=== PATIENT | female | born 1995 | race Caucasian/White ===

== ENCOUNTER 2017-03-06 20:39 | Emergency (ER) | payer OTHER | END 2017-03-06 22:36 | disposition home or self-care (01) | LOC: ER 20:39 | DX: N92.6 Irregular menstruation, unspecified (principal); R11.0 Nausea; F43.10 Post-traumatic stress disorder, unspecified; Z79.899 Other long term (current) drug therapy | CPT/HCPCS: 96372; J1885 ==

== ENCOUNTER 2017-04-18 07:56 | Emergency (ER) | payer OTHER | END 2017-04-18 13:00 | disposition home or self-care (01) | LOC: ER 07:56 | DX: H66.92 Otitis media, unspecified, left ear (principal); N39.0 Urinary tract infection, site not specified; F43.10 Post-traumatic stress disorder, unspecified; Z98.890 Other specified postprocedural states; Z79.899 Other long term (current) drug therapy; Z79.3 Long term (current) use of hormonal contraceptives | CPT/HCPCS: 87651; 96361; 96365; 96375; J0696; J1885 ==

== ENCOUNTER 2017-04-26 05:03 | Emergency (ER) | payer OTHER | END 2017-04-26 08:19 | disposition home or self-care (01) | LOC: ER 05:03 | DX: R09.1 Pleurisy (principal); F43.10 Post-traumatic stress disorder, unspecified | CPT/HCPCS: 36415; Q9967 ==